=== PATIENT | female | born 1935 | race African-American/Black ===

== ENCOUNTER 2017-01-02 22:51 | Inpatient (IN) | payer BC, MEDICARE ==
[~2017-01-02] VITALS: Ht 157.5 cm; Wt 71.6 kg
[2017-01-02] MEDS ORDERED: IPRA4AER PO (22:57)
[2017-01-02] MEDS ORDERED: POTA25TA4 PO (22:57)
[2017-01-02] MEDS ORDERED: HYDR-3237 PO (22:57)
[2017-01-02] MEDS ORDERED: FURO-93 PO (22:57)
[2017-01-02] MEDS ORDERED: methylPREDNISolone SOD SUCC 125 MG/2 ML ONE (23:21)
[2017-01-02] MEDS ORDERED: ALBUTEROL SULFATE 2.5 MG/3 ML NPPB ONE (23:30)
[2017-01-02] MEDS ORDERED: SODIUM CHLORIDE FLUSH 10ML SYR IVF ONE (23:30)
[2017-01-02] MEDS ORDERED: methylPREDNISolone SOD SUCC 125 MG/2 ML IVP ONE (23:30)
[2017-01-02] MEDS ORDERED: ALBUTEROL/IPRATROPIUM 2.5MG/0.5MG, 3 ML NPPB ONE (23:30)
[2017-01-02 23:53] LABS: HEMATOCRIT 31.9 % (34.6-47.8); HEMOGLOBIN 9.8 g/dL (11.7-16.4); WHITE BLOOD COUNT 5.6 x10^3/uL (3.4-10)
[2017-01-02 23:55] LABS: ASPARTATE AMINO TRANSFERASE 16 U/L (15-37); BLOOD UREA NITROGEN 9 mg/dL (7-18)
[2017-01-03 00:01] LABS: IS PT STATUS REG ER OR PRE ER? YES
[2017-01-03] MEDS ORDERED: ACETAMINOPHEN 325 MG TABLET PO PRN (06:00)
[2017-01-03] MEDS ORDERED: hydrALAzine 20 MG/ML, 1ML IVPush PRN (06:00)
[2017-01-03] MEDS ORDERED: LABETALOL 5MG/ML, 20ML IVPush PRN (06:00)
[2017-01-03] MEDS ORDERED: ONDANSETRON 2MG/ML, 2ML IVPush PRN (06:00)
[2017-01-03] MEDS ORDERED: GUAIFENESIN/DM 200-20MG, 10ML UDC PO PRN (06:00)
[2017-01-03 06:40] VITALS: BP 184/53
[2017-01-03] MEDS: INSULIN ASPART 100 UNITS/ML, PEN SQ-INSULIN SCH ×4 (07:00→20:38)
[2017-01-03] MEDS ORDERED: ALBUTEROL/IPRATROPIUM 2.5MG/0.5MG, 3 ML ONE (09:27)
[2017-01-03] MEDS: ENOXAPARIN 40 MG/0.4 ML SQ SCH (09:49)
[2017-01-03] MEDS: SODIUM CHLORIDE 0.9% 1,000 ML IV SCH ×2 (10:02→23:37)
[2017-01-03 12:17] VITALS: BP 137/65
[2017-01-03] MEDS ORDERED: ALBUTEROL/IPRATROPIUM 2.5MG/0.5MG, 3 ML NPPB SCH (14:00)
[2017-01-03] MEDS ORDERED: GLIP-164 PO (16:07)
[2017-01-03] MEDS: ALBUTEROL/IPRATROPIUM 2.5MG/0.5MG, 3 ML NPPB SCH (19:42)
[2017-01-03 21:35] VITALS: BP 140/62
[2017-01-04 01:27] VITALS: BP 136/61
[2017-01-04 01:53] VITALS: BP 159/82
[2017-01-04] MEDS ORDERED: ALUMINUM/MAG/SIMETHICONE 30 ML UDC PO PRN (02:30)
[2017-01-04] MEDS: ENOXAPARIN 40 MG/0.4 ML SQ SCH (05:21)
[2017-01-04 05:57] LABS: HEMATOCRIT 28.1 % (34.6-47.8); HEMOGLOBIN 9.2 g/dL (11.7-16.4); WHITE BLOOD COUNT 5.6 x10^3/uL (3.4-10)
[2017-01-04 06:05] LABS: BLOOD UREA NITROGEN 14 mg/dL (7-18)
[2017-01-04] MEDS: ALBUTEROL/IPRATROPIUM 2.5MG/0.5MG, 3 ML NPPB SCH ×4 (07:05→19:58)
[2017-01-04] MEDS: INSULIN ASPART 100 UNITS/ML, PEN SQ-INSULIN SCH ×4 (07:52→21:39)
[2017-01-04 08:26] VITALS: BP 125/72
[2017-01-04 14:30] VITALS: BP 143/74
[2017-01-04 19:22] VITALS: BP 138/78
[2017-01-04] MEDS ORDERED: GUAIFENESIN/DM 200-20MG, 10ML UDC PO PRN (21:00)
[2017-01-04] MEDS ORDERED: ONDANSETRON 2MG/ML, 2ML IVPush PRN (21:00)
[2017-01-04] MEDS ORDERED: hydrALAzine 20 MG/ML, 1ML IVPush PRN (21:00)
[2017-01-04] MEDS ORDERED: LABETALOL 5MG/ML, 20ML IVPush PRN (21:00)
[2017-01-04] MEDS: HYDROcodone/APAP 5/325 TABLET PO PRN (23:06)
[2017-01-05 01:37] VITALS: BP 154/86
[2017-01-05] MEDS: ALBUTEROL/IPRATROPIUM 2.5MG/0.5MG, 3 ML NPPB SCH ×5 (02:58→19:25)
[2017-01-05 05:18] LABS: HEMATOCRIT 28.3 % (34.6-47.8); HEMOGLOBIN 9.1 g/dL (11.7-16.4); WHITE BLOOD COUNT 4.6 x10^3/uL (3.4-10)
[2017-01-05 05:37] LABS: BLOOD UREA NITROGEN 12 mg/dL (7-18)
[2017-01-05] MEDS: ENOXAPARIN 40 MG/0.4 ML SQ SCH (05:49)
[2017-01-05 07:16] VITALS: BP 130/82
[2017-01-05] MEDS: INSULIN ASPART 100 UNITS/ML, PEN SQ-INSULIN SCH ×4 (08:10→20:04)
[2017-01-05] MEDS ORDERED: AZITHROMYCIN 500 MG TABLET PO SCH (09:00)
[2017-01-05] MEDS ORDERED: FUROSEMIDE 20 MG TABLET PO SCH ×2 (09:00)
[2017-01-05] MEDS: AZITHROMYCIN 500 MG TABLET PO SCH (09:37)
[2017-01-05] MEDS: ASPIRIN 81 MG TABLET EC PO SCH (11:26)
[2017-01-05 12:59] VITALS: BP 133/62
[2017-01-05 19:09] VITALS: BP 109/58
[2017-01-05] MEDS: FUROSEMIDE 20 MG TABLET PO SCH (21:00)
[2017-01-05] MEDS: ATORVASTATIN 20 MG TABLET PO SCH (21:30)
[2017-01-05] MEDS: CARVEDILOL 3.125 MG TABLET PO SCH (21:30)
[2017-01-06 01:22] VITALS: BP 146/72
[2017-01-06] MEDS: HYDROcodone/APAP 5/325 TABLET PO PRN ×2 (03:08→20:12)
[2017-01-06] MEDS: ENOXAPARIN 40 MG/0.4 ML SQ SCH (05:34)
[2017-01-06] MEDS: ASPIRIN 81 MG TABLET EC PO SCH (05:34)
[2017-01-06] MEDS: CARVEDILOL 3.125 MG TABLET PO SCH ×2 (05:34→17:17)
[2017-01-06 06:05] LABS: HEMATOCRIT 31.1 % (34.6-47.8); HEMOGLOBIN 10.1 g/dL (11.7-16.4); WHITE BLOOD COUNT 5.6 x10^3/uL (3.4-10)
[2017-01-06 06:37] LABS: BLOOD UREA NITROGEN 14 mg/dL (7-18); FERRITIN 74.6 ng/mL (8-252); TOTAL IRON BINDING CAPACITY 281 mcg/dL (250-450)
[2017-01-06 07:13] VITALS: BP 118/71
[2017-01-06] MEDS: ALBUTEROL/IPRATROPIUM 2.5MG/0.5MG, 3 ML NPPB SCH ×4 (07:20→20:45)
[2017-01-06] MEDS: INSULIN ASPART 100 UNITS/ML, PEN SQ-INSULIN SCH ×4 (07:56→19:56)
[2017-01-06 09:15] VITALS: BP 108/64
[2017-01-06] MEDS: FUROSEMIDE 20 MG TABLET PO SCH ×2 (09:59→20:02)
[2017-01-06] MEDS: LISINOPRIL 5 MG TABLET PO SCH (10:01)
[2017-01-06] MEDS: AZITHROMYCIN 500 MG TABLET PO SCH (10:02)
[2017-01-06 15:30] VITALS: BP 134/72
[2017-01-06 18:38] VITALS: BP 107/59
[2017-01-06] MEDS: ATORVASTATIN 20 MG TABLET PO SCH (20:01)
[2017-01-07 00:28] VITALS: BP 123/72
[2017-01-07] MEDS: ENOXAPARIN 40 MG/0.4 ML SQ SCH (05:51)
[2017-01-07] MEDS: CARVEDILOL 6.25 MG TABLET PO SCH ×2 (05:51→17:45)
[2017-01-07] MEDS: ASPIRIN 81 MG TABLET EC PO SCH (05:51)
[2017-01-07 05:56] LABS: HEMATOCRIT 29.4 % (34.6-47.8); HEMOGLOBIN 9.5 g/dL (11.7-16.4); WHITE BLOOD COUNT 5.4 x10^3/uL (3.4-10)
[2017-01-07 06:09] LABS: BLOOD UREA NITROGEN 12 mg/dL (7-18)
[2017-01-07 06:50] VITALS: BP 101/58
[2017-01-07] MEDS: INSULIN ASPART 100 UNITS/ML, PEN SQ-INSULIN SCH ×4 (07:00→20:06)
[2017-01-07] MEDS ORDERED: POTASSIUM CHLORIDE 20 MEQ TAB.ER.PRT PO ONE ×2 (07:00→17:00)
[2017-01-07] MEDS: ALBUTEROL/IPRATROPIUM 2.5MG/0.5MG, 3 ML NPPB SCH ×4 (08:40→19:17)
[2017-01-07] MEDS: FUROSEMIDE 20 MG TABLET PO SCH (08:43)
[2017-01-07] MEDS: LISINOPRIL 5 MG TABLET PO SCH (08:43)
[2017-01-07] MEDS: HYDROcodone/APAP 5/325 TABLET PO PRN ×2 (08:57→20:54)
[2017-01-07 13:36] VITALS: BP 102/66
[2017-01-07 18:43] VITALS: BP 123/76
[2017-01-07] MEDS: ATORVASTATIN 20 MG TABLET PO SCH (20:54)
[2017-01-08 01:43] VITALS: BP 113/76
[2017-01-08] MEDS: ASPIRIN 81 MG TABLET EC PO SCH (06:00)
[2017-01-08] MEDS: ENOXAPARIN 40 MG/0.4 ML SQ SCH (06:23)
[2017-01-08] MEDS: CARVEDILOL 6.25 MG TABLET PO SCH ×2 (06:23→17:29)
[2017-01-08 06:41] VITALS: BP 109/66
[2017-01-08 06:44] LABS: BLOOD UREA NITROGEN 12 mg/dL (7-18)
[2017-01-08] MEDS: INSULIN ASPART 100 UNITS/ML, PEN SQ-INSULIN SCH ×4 (07:00→20:52)
[2017-01-08] MEDS: ALBUTEROL/IPRATROPIUM 2.5MG/0.5MG, 3 ML NPPB SCH ×4 (07:00→19:36)
[2017-01-08] MEDS: FUROSEMIDE 20 MG TABLET PO SCH (08:13)
[2017-01-08] MEDS: LISINOPRIL 5 MG TABLET PO SCH (08:17)
[2017-01-08 14:37] VITALS: BP 101/55
[2017-01-08] MEDS: HYDROcodone/APAP 5/325 TABLET PO PRN (17:28)
[2017-01-08 18:47] VITALS: BP 101/60
[2017-01-08 19:03] LABS: IS PT STATUS REG ER OR PRE ER? NO
[2017-01-08] MEDS: ATORVASTATIN 20 MG TABLET PO SCH (20:51)
[2017-01-09 00:48] VITALS: BP 102/60
[2017-01-09 01:00] LABS: IS PT STATUS REG ER OR PRE ER? NO
[2017-01-09] MEDS: ASPIRIN 81 MG TABLET EC PO SCH (05:10)
[2017-01-09] MEDS: CARVEDILOL 6.25 MG TABLET PO SCH (05:10)
[2017-01-09] MEDS: HYDROcodone/APAP 5/325 TABLET PO PRN (05:10)
[2017-01-09] MEDS: ENOXAPARIN 40 MG/0.4 ML SQ SCH (05:11)
[2017-01-09 06:22] LABS: BLOOD UREA NITROGEN 11 mg/dL (7-18); IS PT STATUS REG ER OR PRE ER? NO
[2017-01-09 06:50] VITALS: BP 95/57
[2017-01-09] MEDS: INSULIN ASPART 100 UNITS/ML, PEN SQ-INSULIN SCH ×2 (07:00→11:00)
[2017-01-09] MEDS: ALBUTEROL/IPRATROPIUM 2.5MG/0.5MG, 3 ML NPPB SCH ×2 (08:06→11:33)
[2017-01-09] MEDS: LISINOPRIL 5 MG TABLET PO SCH (08:14)
[2017-01-09] MEDS: FUROSEMIDE 20 MG TABLET PO SCH (08:14)
[2017-01-09] MEDS ORDERED: CARV6.2512 PO (12:48)
[2017-01-09] MEDS ORDERED: ATOR20TA9 PO (12:48)
[2017-01-09] MEDS ORDERED: LISI5TAB7 PO (12:48)
[2017-01-09] MEDS ORDERED: ASPI-621 PO (12:48)
[2017-01-09 13:16] VITALS: BP 117/70
== END 2017-01-09 16:00 | disposition home or self-care (01) | DRG 291 ==
LOC: EDBD 22:51 → ED 01-03 05:15 → SUATTDRO 01-03 05:25 → EDBD 01-03 05:32 → EDIP 01-03 05:32 → 4WST 01-03 06:36 → DCLOUNGE 01-09 15:43
PROVIDERS: ADMIT Hospitalist; ATTEND Family Medicine
DX: I11.0 Hypertensive heart disease with heart failure (principal); J96.20 Acute and chronic respiratory failure, unspecified whether with hypoxia or hypercapnia; I42.0 Dilated cardiomyopathy; J44.1 Chronic obstructive pulmonary disease with (acute) exacerbation; E11.9 Type 2 diabetes mellitus without complications; D64.9 Anemia, unspecified; E78.5 Hyperlipidemia, unspecified; F17.210 Nicotine dependence, cigarettes, uncomplicated; I25.10 Atherosclerotic heart disease of native coronary artery without angina pectoris; I50.43 Acute on chronic combined systolic (congestive) and diastolic (congestive) heart failure; Z99.81 Dependence on supplemental oxygen; Z88.0 Allergy status to penicillin; Z79.84 Long term (current) use of oral hypoglycemic drugs; Z79.899 Other long term (current) drug therapy
CPT/HCPCS: 36415; 71010; 80048; 80053; 80061; 81003; 82040; 82607; 82728; 82746; 82962; 83036; 83540; 83550; 83735; 83880; 84100; 84443; 84484; 85025; 85610; 85730; 93005; 93306; 93970; 94640; 96374; J1650; J1815; J7620; 92523-GN; J2930; J7030; J7512